=== PATIENT | female | born 1985 | race Caucasian/White ===

== ENCOUNTER 2021-02-24 17:03 | Emergency (ER) | payer OTHER ==
[2021-02-24 18:35] LABS: HEMOGLOBIN 13.7 gm/dl (12.3-15.3); RED BLOOD COUNT 4.15 M/UL (4.00-5.10); WHITE BLOOD COUNT 8.5 K/UL (4.5-11.0)
[2021-02-24 18:55] LABS: BUN/CREATININE RATIO 27 (0-10)
[2021-02-24] MEDS ORDERED: CEPHALEXIN500 MG PO (19:33)
[2021-02-26 21:09] LABS: CHLAMYDIA TRACHOMATIS, NAA Negative (Negative); NEISSERIA GONORRHOEAE, NAA Negative (Negative)
[2021-02-27 08:13] LABS: HBSAG SCREEN Negative (Negative); HEP A AB, IGM Negative (Negative); HEP B CORE AB, IGM Negative (Negative); HEP C VIRUS AB <0.1 (0.0-0.9); HIV SCREEN 4TH GENERATION WRFX Non Reactive (Non Reactive)
== END 2021-02-24 19:48 | disposition home or self-care (01) ==
LOC: ER1 17:03
PROVIDERS: Nurse Practitioner
DX: N76.4 Abscess of vulva (principal); N39.0 Urinary tract infection, site not specified; Z20.2 Contact with and (suspected) exposure to infections with a predominantly sexual mode of transmission; E07.9 Disorder of thyroid, unspecified; F17.210 Nicotine dependence, cigarettes, uncomplicated
CPT/HCPCS: 80053; 80074; 81001; 84703; 85025; 86694; 87077; 87086; 87186; 87389; 96372; 99283; J0696

== ENCOUNTER 2021-05-08 10:03 | Emergency (ER) | payer OTHER ==
[~2021-05-08 10:03] MED LIST: CEPHALEXIN500 MG PO
[2021-05-08 12:26] LABS: HEMOGLOBIN 12.1 gm/dl (12.3-15.3); RED BLOOD COUNT 3.86 M/UL (4.00-5.10); WHITE BLOOD COUNT 9.1 K/UL (4.5-11.0)
[2021-05-08 12:52] LABS: BUN/CREATININE RATIO 8 (0-10)
[2021-05-08] MEDS ORDERED: ZOFRAN ODT 4 MG4 MG PO (14:19)
[2021-05-08] MEDS ORDERED: CEFPODOXIME PR200 MG PO (14:19)
== END 2021-05-08 14:55 | disposition home or self-care (01) ==
LOC: ER1 10:03
PROVIDERS: Emergency Medicine
DX: N12 Tubulo-interstitial nephritis, not specified as acute or chronic (principal); R10.9 Unspecified abdominal pain; E05.90 Thyrotoxicosis, unspecified without thyrotoxic crisis or storm; F17.290 Nicotine dependence, other tobacco product, uncomplicated
CPT/HCPCS: 80053; 81001; 83690; 84703; 85025; 87077; 87086; 87186; 96374; 96375; 99284; J0696; J1885; J2405; Q9967

== ENCOUNTER 2021-07-24 21:50 | Emergency (ER) | payer OTHER ==
[~2021-07-24 21:50] MED LIST changes: +CEFPODOXIME PR200 MG PO; +ZOFRAN ODT 4 MG4 MG PO
[2021-07-24 22:46] LABS: HEMOGLOBIN 11.9 gm/dl (12.3-15.3); RED BLOOD COUNT 3.93 M/UL (4.00-5.10); WHITE BLOOD COUNT 18.3 K/UL (4.5-11.0)
[2021-07-24 23:09] LABS: BUN/CREATININE RATIO 14 (0-10)
[2021-07-25] MEDS ORDERED: OMNICEF 300 MG300 MG PO (00:29)
[2021-07-25] MEDS ORDERED: ZOFRAN ODT 4 MG4 MG GT (00:29)
== END 2021-07-25 00:43 | disposition home or self-care (01) ==
LOC: ER1 21:50
PROVIDERS: Nurse Practitioner
DX: N12 Tubulo-interstitial nephritis, not specified as acute or chronic (principal); F17.200 Nicotine dependence, unspecified, uncomplicated; Z20.822 Contact with and (suspected) exposure to COVID-19
CPT/HCPCS: 0240U; 71045; 80053; 80076; 81001; 82150; 83605; 83690; 85025; 87040; 93005; 96374; 96375; 99284; J0696; J2270; J2405; J7030; Q9967